=== PATIENT | male | born 1995 | race Caucasian/White ===

== ENCOUNTER 2018-04-21 10:45 | Emergency (ER) | payer BC ==
--- NOTE | 2018-04-21 10:56 | ER Report ---
History and Physical Time Seen By MD: 10:56 Hx. of Stated Complaint: RIGHT HEEL AND ANKLE SWELLING PAIN FOR 2 DAYS. DENIES INJURY HPI/ROS CHIEF COMPLAINT: Right ankle pain HISTORY OF PRESENT ILLNESS: 22-year-old male patient presents to emergency room with complaint of right ankle pain. Patient states that he has been having this pain since yesterday. He denies having any injury to the ankle. 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 States he is typically up on his feet throughout the day. He states that last time he is lying down that he is having a lot of throbbing in his ankle. He states that he has pain mostly on the medial aspect of the ankle. He states that he has not taken any medication for this. He denies any numbness tingling to the toes. Patient states he does have significant amounts of pain with ambulation. REVIEW OF SYSTEMS: Respiratory: No cough, no dyspnea. Cardiovascular: No chest pain, no palpitations. Gastrointestinal: No vomiting, no abdominal pain. Musculoskeletal: As noted above Allergies: Coded Allergies: No Known Drug Allergies (Unverified , 04/21/18) Home Meds Active Scripts Ibuprofen (IBUPROFEN) 800 Mg Tablet, 1 TAB PO Q8H, #21 TAB Prov:COLE DANIEL MARIANNE 04/21/18 Past Medical/Surgical History Patient has a past medical history of bone spurs and left foot. Patient denies any surgical history. Reviewed Nurses Notes: Yes Constitutional Vital Sign - Last 24 Hours 04/21/18 04/21/18 10:49 13:58 Temp 97.4 Pulse 80 72 Resp 18 16 B/P (MAP) 123/83 118/73 (88) Pulse Ox 100 94 O2 Delivery Room Air Room Air Physical Exam General Appearance: The patient is alert, has no immediate need for airway protection and no current signs of toxicity. Respiratory: Chest is non tender, lungs are clear to auscultation. Cardiac: regular rate and rhythm Gastrointestinal: Abdomen is soft and non tender, no masses, bowel sounds normal. Musculoskeletal: Neck: Neck is supple and non tender. Extremities have full range of motion and are non tender. The right ankle is erythematous, warm to the touch, tender to touch on the medial aspect. Does appear to be more swollen and warm to touch on the lateral aspect. Skin: No rashes or lesions. DIFFERENTIAL DIAGNOSIS: After history and physical exam differential diagnosis was considered for gout, inflammation of the ankle, fracture, contusion, sprain. Medical Decision Making Data Points Result Diagram: 04/21/18 1112 04/21/18 1112 Laboratory Hematology Test 04/21/18 11:12 Red Blood Count 5.18 M/uL (4.00-5.60) Mean Corpuscular Volume 90.7 fL (80.0-96.0) Mean Corpuscular Hemoglobin 31.6 pg (26.0-33.0) Mean Corpuscular Hemoglobin Concent 34.8 g/dL (32.0-36.0) Red Cell Distribution Width 13.0 % (11.5-14.5) Mean Platelet Volume 7.6 fL (7.2-11.1) Neutrophils (%) (Auto) 73.6 % (39.4-72.5) Lymphocytes (%) (Auto) 17.8 % (17.6-49.6) Monocytes (%) (Auto) 7.0 % (4.1-12.4) Eosinophils (%) (Auto) 1.2 % (0.4-6.7) Basophils (%) (Auto) 0.4 % (0.3-1.4) Nucleated RBC Relative Count (auto) 0.0 /100WBC Neutrophils # (Auto) 7.2 K/uL (2.0-7.4) Lymphocytes # (Auto) 1.7 K/uL (1.3-3.6) Monocytes # (Auto) 0.7 K/uL (0.3-1.0) Eosinophils # (Auto) 0.1 K/uL (0.0-0.5) Basophils # (Auto) 0.0 K/uL (0.0-0.1) Nucleated RBC Absolute Count (auto) 0.00 K/uL Erythrocyte Sedimentation Rate 14 mm/HOUR (0-15) Sodium Level 141 mmol/L (137-145) Potassium Level 3.9 mmol/L (3.5-5.0) Chloride Level 105 mmol/L (98-107) Carbon Dioxide Level 23 mmol/L (22-30) Blood Urea Nitrogen 17 mg/dl (9-21) Creatinine 1.00 mg/dl (0.66-1.25) Glomerular Filtration Rate Calc > 60.0 Random Glucose 100 mg/dl (75-110) Uric Acid 7.8 mg/dl (3.5-8.5) Calcium Level 9.4 mg/dl (8.4-10.2) Total Bilirubin 0.6 mg/dl (0.2-1.3) Aspartate Amino Transf (AST/SGOT) 19 U/L (0-35) Alanine Aminotransferase (ALT/SGPT) 20 U/L (0-56) Alkaline Phosphatase 76 U/L (0-126) C-Reactive Protein 1.8 mg/dl (<1.0) Total Protein 7.5 g/dl (6.3-8.2) Albumin 4.4 g/dl (3.5-5.0) Chemistry Test 04/21/18 11:12 White Blood Count 9.8 k/uL (4.5-11.0) Red Blood Count 5.18 M/uL (4.00-5.60) Hemoglobin 16.4 g/dL (14.0-18.0) Hematocrit 47.0 % (42.0-52.0) Mean Corpuscular Volume 90.7 fL (80.0-96.0) Mean Corpuscular Hemoglobin 31.6 pg (26.0-33.0) Mean Corpuscular Hemoglobin Concent 34.8 g/dL (32.0-36.0) Red Cell Distribution Width 13.0 % (11.5-14.5) Platelet Count 251 K/uL (150-450) Mean Platelet Volume 7.6 fL (7.2-11.1) Neutrophils (%) (Auto) 73.6 % (39.4-72.5) Lymphocytes (%) (Auto) 17.8 % (17.6-49.6) Monocytes (%) (Auto) 7.0 % (4.1-12.4) Eosinophils (%) (Auto) 1.2 % (0.4-6.7) Basophils (%) (Auto) 0.4 % (0.3-1.4) Nucleated RBC Relative Count (auto) 0.0 /100WBC Neutrophils # (Auto) 7.2 K/uL (2.0-7.4) Lymphocytes # (Auto) 1.7 K/uL (1.3-3.6) Monocytes # (Auto) 0.7 K/uL (0.3-1.0) Eosinophils # (Auto) 0.1 K/uL (0.0-0.5) Basophils # (Auto) 0.0 K/uL (0.0-0.1) Nucleated RBC Absolute Count (auto) 0.00 K/uL Erythrocyte Sedimentation Rate 14 mm/HOUR (0-15) Glomerular Filtration Rate Calc > 60.0 Uric Acid 7.8 mg/dl (3.5-8.5) Calcium Level 9.4 mg/dl (8.4-10.2) Total Bilirubin 0.6 mg/dl (0.2-1.3) Aspartate Amino Transf (AST/SGOT) 19 U/L (0-35) Alanine Aminotransferase (ALT/SGPT) 20 U/L (0-56) Alkaline Phosphatase 76 U/L (0-126) C-Reactive Protein 1.8 mg/dl (<1.0) Total Protein 7.5 g/dl (6.3-8.2) Albumin 4.4 g/dl (3.5-5.0) EKG/Imaging Imaging VENOUS DOPP LOW RIGHT EXTREMIT HISTORY: Swelling and pain in the right ankle COMPARISON: None. FINDINGS: Grayscale, duplex and color Doppler interrogation of the right lower extremity deep veins from common femoral vein to proximal calf was completed. The greater saphenous vein in the right proximal thigh was evaluated using similar technique. Common femoral vein - Negative. Femoral vein - Negative. Deep femoral vein - Negative. Popliteal vein - Negative. Visualized deep calf veins - Negative. Popliteal fossa: Negative. Greater saphenous vein in the proximal thigh: Negative. IMPRESSION: 1. No evidence for right lower extremity DVT. Report Dictated By: Pedro Camacho MD at 04/21/2018 1:17 PM Report E-Signed By: Pedro Camacho MD at 04/21/2018 1:19 PM ANKLE 3 VIEW MIN RIGHT, FOOT 3 VIEW RIGHT Given history: ankle pain COMPARISON STUDIES: NONE FINDINGS: Osseous structures: Intact without evidence of fracture . Joints: There is several small well-corticated calcifications anterior to the tibial talar joint seen in the lateral view, the largest measuring 4 mm in diameter, which may represent small intra-articular loose bodies. There is also mild osteophytosis. The joint space is well-maintained. Remaining joints in the foot are normal. Soft tissues: normal . IMPRESSION: Mild tibiotalar osteoarthritis. Possible accompanying loose bodies. Report Dictated By: Jayson Cote MD at 04/21/2018 12:05 PM Report E-Signed By: Jayson Cote MD at 04/21/2018 12:09 PM ED Course/Re-evaluation ED Course Patient was admitted and examined, history and physical were obtained. Differential diagnoses were considered. On examination patient had warmth and swelling to the right ankle, had more tenderness to the medial aspect although seemed to be more swollen on the lateral aspect. X-rays done of the foot and ankle. That did show degeneration in the tibiotalar region. Also there concerned about possible bone fragments. A CBC, CMP, CRP was done. Patient had an elevated CRP of 1.8. CBC and CMP were unremarkable. An ultrasound was done of the right lower leg. I was also negative. Discuss findings with patient. Appears he does have some arthritis that is causing inflammation of the right ankle. We will go ahead and place him on ibuprofen 800 mg 3 times a day. We're doing this patient has not tried any medications prior to coming to the emergency room. He is to follow-up with Dr. Pena next week if pain persists. He is return to emergency room if condition worsens. Patient verbalized understanding and agreement with plan. Decision to Disposition Date: Apr 21, 2018 Decision to Disposition Time: 13:45 Depart Departure Latest Vital Signs Vital Signs Date Time Temp Pulse Resp B/P (MAP) Pulse Ox O2 Delivery O2 Flow Rate FiO2 04/21/18 13:58 72 16 118/73 (88) 94 Room Air 04/21/18 10:49 97.4 Impression: Primary Impression: Arthritis of ankle joint Condition: Improved Disposition: HOME OR SELF-CARE New Scripts Ibuprofen (IBUPROFEN) 800 Mg Tablet 1 TAB PO Q8H, #21 TAB Prov: COLE DANIEL 04/21/18 Patient Instructions: Arthritis (ED) Additional Instructions: Limit activity by pain. Take the Ibuprofen with food, and as directed. Follow up with Dr. Quiros in the next week. Get plenty of rest. Return to the ER if condition worsens. COLE DANIEL Apr 21, 2018 10:56
[2018-04-21 11:29] LABS: PLATELET COUNT, AUTOMATED 251 K/uL (150-450)
--- NOTE | 2018-04-21 12:13 | RADIOLOGY IMAGING REPORT ---
FACILITY: [facility] - [place] PATIENT NAME: Marcio Souza : 1995 MR: [id number] V: [id number] EXAM DATE: ORDERING PHYSICIAN: COLE DANIEL TECHNOLOGIST: [place] [facility] [place] Sou[place] : 1995 Visit/Account:[id number] Date of Sevice: 04/21/2018 ANKLE 3 VIEW MIN RIGHT, FOOT 3 VIEW RIGHT Given history: ankle pain COMPARISON STUDIES: NONE FINDINGS: Osseous structures: Intact without evidence of fracture . Joints: There is several small well-corticated calcifications anterior to the tibial talar joint se en in the lateral view, the largest measuring 4 mm in diameter, which may represent small intra-artic ular loose bodies. There is also mild osteophytosis. The joint space is well-maintained. Remaining jennifer ints in the foot are normal. Soft tissues: normal . IMPRESSION: Mild tibiotalar osteoarthritis. Possible accompanying loose bodies. Report Dictated By: Jayson Cote MD at 04/21/2018 12:05 PM Report E-Signed By: Jayson Cote MD at 04/21/2018 12:09 PM WSN:[id number]
--- NOTE | 2018-04-21 12:13 | RADIOLOGY IMAGING REPORT ---
FACILITY: [facility] - [place] PATIENT NAME: Marcio Souza : 1995 MR: [id number] V: [id number] EXAM DATE: ORDERING PHYSICIAN: COLE DANIEL TECHNOLOGIST: Location: [facility] Patient: Marcio Souza : 1995 Visit/Account:[id number] Date of Sevice: 04/21/2018 ANKLE 3 VIEW MIN RIGHT, FOOT 3 VIEW RIGHT Given history: ankle pain COMPARISON STUDIES: NONE FINDINGS: Osseous structures: Intact without evidence of fracture . Joints: There is several small well-corticated calcifications anterior to the tibial talar joint se en in the lateral view, the largest measuring 4 mm in diameter, which may represent small intra-artic ular loose bodies. There is also mild osteophytosis. The joint space is well-maintained. Remaining jennifer ints in the foot are normal. Soft tissues: normal . IMPRESSION: Mild tibiotalar osteoarthritis. Possible accompanying loose bodies. Report Dictated By: Jayson Cote MD at 04/21/2018 12:05 PM Report E-Signed By: Jayson Cote MD at 04/21/2018 12:09 PM WSN:[id number]
--- NOTE | 2018-04-21 13:24 | RADIOLOGY IMAGING REPORT ---
[place] [facility] [place] Marcio Souza : 1995 MR: [id number] V: [id number] EXAM DATE: ORDERING PHYSICIAN: COLE DANIEL TECHNOLOGIST: Location: [facility] - [place] Patient: Marcio Souza : 1995 Visit/Account:[id number] Date of Sevice: 04/21/2018 VENOUS DOPP LOW RIGHT EXTREMIT HISTORY: Swelling and pain in the right ankle COMPARISON: None. FINDINGS: Grayscale, duplex and color Doppler interrogation of the right lower extremity deep veins from common femoral vein to proximal calf was completed. The greater saphenous vein in the right proximal thigh was evaluated using similar technique. Common femoral vein - Negative. Femoral vein - Negative. Deep femoral vein - Negative. Popliteal vein - Negative. Visualized deep calf veins - Negative. Popliteal fossa: Negative. Greater saphenous vein in the proximal thigh: Negative. IMPRESSION: 1. No evidence for right lower extremity DVT. Report Dictated By: Pedro Camacho MD at 04/21/2018 1:17 PM Report E-Signed By: Pedro Camacho MD at 04/21/2018 1:19 PM WSN:[id number]
[2018-04-21] MEDS ORDERED: IBUP800T37 PO (13:46)
[2018-04-21 13:58] VITALS: BP 118/73
== END 2018-04-21 13:59 | disposition home or self-care (01) ==
LOC: ER 10:59
DX: M19.071 Primary osteoarthritis, right ankle and foot (principal)
CPT/HCPCS: 36415; 82040; 82247; 82310; 82374; 82435; 82565; 82947; 84075; 84132; 84155; 84295; 84450; 84460; 84520; 84550; 85025; 85651; 86140; 99284